=== PATIENT | female | born 1980 | race Caucasian/White ===

== ENCOUNTER 2022-05-11 11:26 | Day surgery (SDC) | payer OTHER ==
[2022-05-10 09:27] LABS: HCG,QUAL RESULT NEGATIVE (NEGATIVE)
[~2022-05-11] VITALS: Ht 162.6 cm; Wt 90.7 kg
[2022-05-11] MEDS ORDERED: MIDAZOLAM HCL 2 MG/2 ML VIAL (VERSED) ONE (14:15)
[2022-05-11] MEDS ORDERED: SUGAMMADEX SODIUM 200 MG/2 ML VIAL IV ONE (14:15)
[2022-05-11] MEDS ORDERED: KETOROLAC TROMETHAMINE 30 MG VIAL ONE (14:15)
[2022-05-11] MEDS ORDERED: ONDANSETRON HCL 4 MG/2 ML VIAL ONE (14:15)
[2022-05-11] MEDS ORDERED: NS IRRIG SOLN 1000 ML IR ONE (14:15)
[2022-05-11] MEDS ORDERED: DEXAMETHASONE SOD PHOSPHATE 4 MG/ML VIAL ONE (14:15)
[2022-05-11] MEDS ORDERED: PROPOFOL 200MG/ 20ML VIAL (DIPRIVAN) IV ONE (14:15)
[2022-05-11] MEDS ORDERED: fentaNYL CITRATE/PF 100 MCG/2 ML AMP ONE (14:15)
[2022-05-11] MEDS ORDERED: LR 1,000 ML IV.SOLN IV ONE (14:15)
[2022-05-11] MEDS ORDERED: SEVOFLURANE 15 MIN GAS INH ONE (14:15)
[2022-05-11] MEDS ORDERED: ROCURONIUM BROMIDE 10 MG/ML (ZEMURON) ONE (14:15)
[2022-05-11] MEDS ORDERED: ACETAMINOPHEN I.V. 1000 MG 100 ML IV ONE (14:46)
[2022-05-11] MEDS ORDERED: MEPERIDINE HCL/PF 25 MG/ML DISP.SYRIN IVP PRN (15:00)
[2022-05-11] MEDS ORDERED: LR 1,000 ML IV SCH (15:00)
[2022-05-11] MEDS ORDERED: HYDROmorphone 1 MG/ML INJ. CARTRIDGE IVP PRN ×2 (15:00)
[2022-05-11] MEDS ORDERED: METOCLOPRAMIDE HCL 10 MG/2 ML VIAL IVP PRN (15:00)
[2022-05-11] MEDS ORDERED: HYDROmorphone 1 MG/ML INJ. CARTRIDGE ONE (16:54)
[2022-05-11 18:35] VITALS: BP_SYST 131
== END 2022-05-11 19:00 | disposition home or self-care (01) ==
LOC: SDS 11:26 → SMU 11:30 → SDS 19:00
PROVIDERS: ATTEND Student in an Organized Health Care Education/Training Program
DX: S52.572A Other intraarticular fracture of lower end of left radius, initial encounter for closed fracture (principal); W19.XXXA Unspecified fall, initial encounter; Y93.51 Activity, roller skating (inline) and skateboarding; Y92.89 Other specified places as the place of occurrence of the external cause; Y99.8 Other external cause status; Z20.822 Contact with and (suspected) exposure to COVID-19
CPT/HCPCS: 84703; 87081; 25609; 36415; 87426; 76000; J3490; J1100; J1885; J3465; J2405; J2704; J3010; J1170; J7120; A4565; J0131; C1713 ×8